=== PATIENT | male | born 2000 | race Caucasian/White ===

== ENCOUNTER 2023-12-21 15:20 | Emergency (ER) | payer SELFPAY ==
[~2023-12-21] VITALS: Ht 170.2 cm; Wt 102.7 kg
[2023-12-21 15:56] VITALS: BP 126/70; PULSE 72; RESP 18; TEMP 98.2; O2SAT 100
== END 2023-12-21 16:55 | disposition home or self-care (01) ==
LOC: MED 15:20
DX: J06.9 Acute upper respiratory infection, unspecified (principal); B97.89 Other viral agents as the cause of diseases classified elsewhere; Z02.79 Encounter for issue of other medical certificate
CPT/HCPCS: 99281